=== PATIENT | male | born 1975 | race Caucasian/White ===

== ENCOUNTER 2020-01-22 16:41 | Emergency (ER) | payer OTHER, SELFPAY ==
--- NOTE | ~2020-01-22 | XR_ITS ---
EXAMINATION: XR ankle LT min 3V DATE: 01/22/2020 17:28 INDICATION: Soft tissue laceration and pain TECHNIQUE: Anteroposterior, lateral, mortise, and additional oblique view of the ankle were obtained. COMPARISON: None. FINDINGS: Soft tissue swelling and a soft tissue defect are seen near the medial malleolus. A faint l inear density is seen near the medial malleolus on the AP view. No additional acute osseous abnormali ty is suspected. Plantar calcaneal enthesophyte is noted. IMPRESSION: 1. Soft tissue defect and swelling near the medial malleolus, consistent with injury. 2. Faint linear density adjacent to the medial malleolus could reflect associated osseous injury. Reviewed, dictated and finalized at location A. IMPRESSION: 1. Soft tissue defect and swelling near the medial malleolus, consistent with i njury. 2. Faint linear density adjacent to the medial malleolus could reflect associat ed osseous injury.
[2020-01-22 16:43] VITALS: BP 125/88; PULSE 73; RESP 18; TEMP 36.9; O2SAT 96
[2020-01-22] MEDS: TETANUS,DIPHTHERIA,AC PERTUSSIS ADULT (0.5 ML) BOOSTRIX IM (17:21)
--- NOTE | 2020-01-22 17:38 | ED.LOWEXIN ---
HPI - Extremity Injury (Lower) General Chief Complaint: Extremity Injury, Lower <Rebekah Lloyd PA-C - Last Filed: 01/22/20 20:56> Stated Complaint: Chainsaw VS Foot <Rebekah Lloyd PA-C - Last Filed: 01/22/20 20:56> Time Seen by Provider: 01/22/20 17:04 <Rebekah Lloyd PA-C - Last Filed: 01/22/20 20:56> Source: patient <Rebekah Lloyd PA-C - Last Filed: 01/22/20 20:56> Mode of arrival: EMS <Rebekah Lloyd PA-C - Last Filed: 01/22/20 20:56> Limitations: no limitations <Rebekah Lloyd PA-C - Last Filed: 01/22/20 20:56> History of Present Illness HPI Narrative: This is a 44-year-old male that presents the emergency department after chainsaw injury today. Reports a laceration to the left ankle. Unsure of his last tetanus vaccine. Denies decreased range of motion or numbness. <Rebekah Lloyd PA-C - Last Filed: 01/22/20 20:56> Related Data Allergies/Adverse Reactions: Allergies Allergy/AdvReac Type Severity Reaction Status Date / Time No Known Allergies Allergy Verified 01/22/20 16:42 <Rebekah Lloyd PA-C - Last Filed: 01/22/20 20:56> Review of Systems Review of Systems: Narrative: CONSTITUTIONAL: Denies fever SKIN: Reports laceration MUSCULOSKELETAL: Denies joint pain, or myalgia. NEUROLOGIC: Denies numbness <Rebekah Lloyd PA-C - Last Filed: 01/22/20 20:56> All systems reviewed & are unremarkable except as noted in HPI and below <Rebekah Lloyd PA-C - Last Filed: 01/22/20 20:56> PMFSH Past Medical History Medical History: Medical History (Updated 01/22/20 @ 20:53 by Rebekah Lloyd PA-C) No active medical problems <Rebekah Lloyd PA-C - Last Filed: 01/22/20 20:56> Family History Family History: Family History (Updated 08/11/11 @ 13:56 by DOCTOR UNKNOWN) Other Cerebrovascular accident Diabetes mellitus Family history of cardiovascular disease Family history of malignant neoplasm <MAGUE Lozano Last Filed: 01/22/20 20:56> Social History Social History: Social History Smoking status: Smoker, status unknown Alcohol intake: current Gender identity (if verbalized by the patient): Male <MAGUE Lozano Last Filed: 01/22/20 20:56> Exam Narrative: Exam Narrative: GENERAL: Well-appearing, well-nourished, and in no acute distress. HEAD: Normocephalic, atraumatic. EYES: EOMI. EXTREMITIES: Normal range of motion. No edema or obvious deformity. Left ankle over the medial malleoli with 2 irregular lacerations into the subcutaneous tissue approximately 3 cm each SKIN: Warm, dry, no rash. NEURO: No focal deficits. Alert and oriented x3. PSYCH: Normal mood and affect <MAGUE Lozano Last Filed: 01/22/20 20:56> Course Consultations Consultation #1: Spoke with Dr. Kebede about patient and work-up who reports that likely that small osseous fragment is not anything significant <MAGUE Lozano Last Filed: 01/22/20 20:56> Date: 01/22/20 <MAGUE Lozano Last Filed: 01/22/20 20:56> Time: 20:51 <MAGUE Lozano Last Filed: 01/22/20 20:56> Vital Signs Vital signs: Vital Signs Temperature 98.5 F 01/22/20 16:43 Pulse Rate 73 01/22/20 16:43 Respiratory Rate 18 01/22/20 16:43 Blood Pressure 125/88 01/22/20 16:43 Pulse Oximetry 96 01/22/20 16:43 Temperature 98.5 F 01/22/20 16:43 Pulse Rate 73 01/22/20 16:43 Respiratory Rate 18 01/22/20 16:43 Blood Pressure 125/88 01/22/20 16:43 Pulse Oximetry 96 01/22/20 16:43 <MAGUE Lozano Last Filed: 01/22/20 20:56> Vital Signs Temperature 98.5 F 01/22/20 16:43 Pulse Rate 73 01/22/20 16:43 Respiratory Rate 18 01/22/20 16:43 Blood Pressure 125/88 01/22/20 16:43 Pulse Oximetry 96 01/22/20 16:43 Temperature 98.5 F 01/22/20 16:43 Pulse Rate 73 01/22/20 16:43 Respiratory Rate 18 01/22/20 16:43 Blood Pressure 125/8
[2020-01-22] MEDS: LIDO 1%/EPINEPHRINE 1:100,000 20 ML VIAL INFILTRATE (19:18)
[2020-01-22] MEDS: WATER, STERILE FOR INJECTION 10 ML VIAL XX (20:36)
[2020-01-22] MEDS: ceFAZolin SODIUM 1 GM VIAL IM (20:36)
[2020-01-22 21:19] VITALS: BP 113/73; PULSE 73; RESP 18; O2SAT 99
== END 2020-01-22 21:21 | disposition home or self-care (01) ==
PROVIDERS: Emergency Provider General Practice
DX: S91.012A Laceration without foreign body, left ankle, initial encounter (principal); W29.3XXA Contact with powered garden and outdoor hand tools and machinery, initial encounter; Z23 Encounter for immunization
CPT/HCPCS: 12002; 73610; 90471; 90715; 96372; 99283; A9270; J0690

== ENCOUNTER 2025-03-25 21:42 | Emergency (ER) | payer OTHER, SELFPAY ==
--- OUTSIDE RECORDS SUMMARY | 2025-03-25 21:45 | XMS_ITS | Encounter Summary ---
Author Organization [facility] Address [address] [place] [address] Care Team Providers Care Meat Curer Name Role Phone Ignacio Cameron MD Primary Care Provider [phone] Reason for Visit * Reason Comments Information Encounter Details Date Type Department Care Team (Late st Contact Info) Description 10/11/2024 Telephone [facility] [address] [place] [address] [place] [address] [place] [address] Information Social History Tobacco Use Types Packs/Day Years Used Date Smoking Tobacco: Light Smoker Cigars Smokeless Tobacco: Never Alcohol Use Standard Drinks/Week Comments Yes 0 (1 standard drink = 0.6 oz pur e alcohol) occasional Sex and Gender Information Value Date Recorded Sex Assigned at Not on file Legal Sex Male 4:11 PM CDT Gender Identity Not on file Sexual Orientation Not on file documented as of this encounter Miscellaneous Notes * Telephone Encounter - Marquita Candelario - 10/11/2024 3:00 PM CST Left messages with appt and informed them to call if that appointment does not work. LOGY COORDINATOR * Telephone Encounter - Nataliia Cox - 10/11/2024 10:30 AM CST Copied from [facility] #[id number]. Topic: Patient or Caregiver Communication Request >> Oct 11, 2024 10:28 AM Nataliia B wrote: Patient or Caregiver requesting advice Caller: Mony () Patient/Caregiver Callback Number: [phone] Call Notes: Mony is calling because she is a patient of Dr Cameron and the patient wants to be a patient of his as well. No appointments are populating for Dr. Cameron. Please advise. LOGY COORDINATOR documented in this encounter Plan of Treatment Upcoming Encounters Date Type Department Care Team (Late st Contact Info) Description 01/01/2026 1:00 PM CDT Office Visit [facility] [address] [place] [address] [place] [address] [place] [address] documented as of this encounter Visit Diagnoses Not on filedocumented in this encounter Care Teams Meat Curer Relationship Specialty [place] [address] [place] [address] PCP - General Family Practice 12/26/24 documented as of this encounter
--- OUTSIDE RECORDS SUMMARY | 2025-03-25 21:45 | XMS_ITS | Encounter Summary ---
Author Organization [facility] Address [address] [place] [address] Care Team Providers Care Skills Trainer Name Role Phone Unavailable Primary Care Provider Unavailabl e Encounter Details Date Type Department Care Team (Late st Contact Info) Description 06/24/2023 Lab Requisition [facility] - DermPath Lab [address] [place] [id number] Jessi Clayton PA-C [address] [place] [phone] Neoplasm of uncertain behavior of skin Social History Tobacco Use Types Packs/Day Years Used Date Smoking Tobacco: Never Assessed Sex and Gender Information Value Date Recorded Sex Assigned at Not on file Legal Sex Male 4:01 PM CDT Gender Identity Not on file Sexual Orientation Not on file documented as of this encounter Plan of Treatment Not on file documented as of this encounter Procedures Procedure Name Priority Date/Time Associated Diagnosis Comments DERMATOPATHOLOGY Routine 06/24/2023 12:0 0 AM CDT Neoplasm of uncertain behavior of skin documented in this encounter Results * DERMATOPATHOLOGY (06/24/2023 12:00 AM CDT) Case Report Dermatopathology Report Case: [id number] Authorizing Provider: Jessi Clayton PA-C Collected: 06/24/2023 12:00 AM Ordering Location: [facility] DermPath Lab Received: 06/25/2023 01:32 PM Pathologist: Anjelica Flowers MD Specimen: Skin, medial frontal scalp 4:32 PM CDT DERMATOPATHOLOGY LABORATORY Final Diagnosis Specimen A. SKIN, medial frontal scalp: SOLAR ELASTOSIS (L57.8) TELANGIECTASES (I78.1) (see microscopic description) 10/30/202 3 4:32 PM CDT DERMATOPATHOLOGY LABORATORY at 1632 CDT Clinical History Basal Carcinoma 3 4:32 PM CDT DERMATOPATHOLOGY LABORATORY Gross Description Specimen A: Received is one formalin filled container labeled with the patient's name and designated medial frontal scalp. The specimen consists of a shave biopsy measuring 8x6x1 mm. Jar 0. 3 4:32 PM CDT DERMATOPATHOLOGY LABORATORY Microscopic Description Specimen A. SKIN, medial frontal scalp: The epidermis is unremarkable. The dermis shows a proliferation of elastic fibers in the superficial dermis that are increased in thickness. Tumor is not seen. Within the dermis there are dilated thin-walled vessels lined by a single layer of endothelium. Additional deeper sections were obtained and reviewed. 3 4:32 PM CDT DERMATOPATHOLOGY LABORATORY Disclaimer An external and internal positive and negative controls are appropriate for the histochemical, immunohistochemical and immunofluorescence stain(s) in this case (if any), except where stated explicitly. The performance characteristics of the stain(s) cited in this report were developed and its performance characteristic determined by the Dermatopathology Laboratory at [facility], directed by Dr. Paul Salas. These tests need not be, and therefore are not, approved by the [place] Food and Drug Administration. The tests are used for clinical purposes. Billing Codes Specimen Charges Stain Charges 49317 1 3 4:32 PM CDT DERMATOPATHOLOGY LABORATORY Embedded Images 3 4:32 PM CDT DERMATOPATHOLOGY LABORATORY Pathology/Cytolog y TISSUE SPECIMEN FROM SKIN / Unknown 06/24/2023 06/25/2023 1:32 PM CDT Jessi Clayton PA-C LAB - PATHOLOGY/CYTOLOGY ANGELAE SARAH Final Result DERMATOPATHOLOGY LABORATORY [facility] - Department of Dermatology [address] [place] [address], [facility] [phone] documented in this encounter Visit Diagnoses Diagnosis Neoplasm of uncertain behavior of skin documented in this encounter
--- OUTSIDE RECORDS SUMMARY | 2025-03-25 21:45 | XMS_ITS | Clinical Summary ---
Author Organization [facility] Address [address] [place] [address] Care Team Providers Care Advertising Dispatch Clerks Supervisor Name Role Phone Unavailable Primary Care Provider Unavailabl e Source Comments [facility],non-owned Affiliates and Associated Physician Practices is amultiple site organization consisting of ambulatory clinics and hospital sitesin [place], [place], [place] and [place]. This disclosure is being madepursuant to the Care Everywhere program and may not contain all information available regarding this patient. Last updated 18.[facility] Social History Tobacco Use Types Packs/Day Years Used Date Smoking Tobacco: Never Assessed Sex and Gender Information Value Date Recorded Sex Assigned at Not on file Legal Sex Male 4:01 PM CDT Gender Identity Not on file Sexual Orientation Not on file Plan of Treatment Health Maintenance Due Date Last Done Comments COLOGUARD (AGES 45-75) - COL ON CA SCREENING 1975 COLON MONITORING 1975 COLONOSCOPY - COLON CA SCREENING 1975 CT COLONOGRAPHY - COLON CA SCREENING 1975 Colorectal Cancer Screening 1975 FIT - COLON CA SCREENING 1975 FLEX SIG - COLON CA SCREENING 1975 LIPID TESTING 1975 HIV SCREENING 1990 HEPATITIS C SCREENING 02/15/1993 DTAP/TDAP/TD VACCINES (1 - Tdap) 1994 HEPATITIS B VACCINE (1 of 3 - 19+ 3-dose series) 1994 COVID-19 VACCINE (1 - 2023-2 5 season) 2024 DEPRESSION SCREENING 08/30/2024 PNEUMOCOCCAL VACCINE 50+ (1 of 1 - PCV) 2025 ZOSTER VACCINE (1 of 2) 2025 INFLUENZA VACCINE (#1) 2025 HIB VACCINE Aged Out No longer eligi ble based on patient's age to complete this topic HPV VACCINE Aged Out No longer eligi ble based on patient's age to complete this topic MENINGOCOCCAL (Group B) VACC INE SHARED DECISION-MAKING Aged Out No longer eligibl e based on patient's age to complete this topic MENINGOCOCCAL GROUPS A/C/Y/W VACCINE Aged Out No longer eligible b ased on patient's age to complete this topic Insurance [employer]
--- OUTSIDE RECORDS SUMMARY | 2025-03-25 21:45 | XMS_ITS | Continuity of Care Document ---
Author Organization [facility] [place] Address [address] [place] [address] [address] [place] [address] Phone Care Team Providers Care Cap Parts Cutter Name Role Phone Jermain Zuniga Unavailable Unavailable Procedures Procedure Date Therapeutic Activities Neuromuscular Re-Ed Therapeutic Exercise Manual Therapy Therapeutic Activities Therapeutic Exercise Neuromuscular Re-Ed Manual Therapy Therapeutic Activities Manual Therapy Therapeutic Exercise Therapeutic Activities Neuromuscular Re-Ed Therapeutic Exercise Manual Therapy Therapeutic Activities Neuromuscular Re-Ed Therapeutic Exercise Manual Therapy Therapeutic Activities Neuromuscular Re-Ed Therapeutic Exercise Manual Therapy Therapeutic Activities Neuromuscular Re-Ed Manual Therapy Therapeutic Exercise Therapeutic Activities Therapeutic Exercise Neuromuscular Re-Ed Manual Therapy Therapeutic Activities Therapeutic Exercise Neuromuscular Re-Ed Manual Therapy Therapeutic Activities Neuromuscular Re-Ed Therapeutic Exercise Manual Therapy Therapeutic Activities Neuromuscular Re-Ed Therapeutic Exercise PT Evaluation Moderate Complexity Therapeutic Activities Neuromuscular Re-Ed THERAPEUTIC EXERCISES NEUROMUSCULAR RE-ED MANUAL THERAPY MECHANICAL TRACTION THERAPEUTIC EXERCISES NEUROMUSCULAR RE-ED MANUAL THERAPY PT RE-EVALUATION THERAPEUTIC EXERCISES NEUROMUSCULAR RE-ED MANUAL THERAPY MECHANICAL TRACTION THERAPEUTIC EXERCISES NEUROMUSCULAR RE-ED MANUAL THERAPY MECHANICAL TRACTION THERAPEUTIC EXERCISES NEUROMUSCULAR RE-ED MANUAL THERAPY THERAPEUTIC EXERCISES NEUROMUSCULAR RE-ED MANUAL THERAPY HOT/COLD PACK MECHANICAL TRACTION ELECTRIC STIMULATION UNA THERAPEUTIC EXERCISES NEUROMUSCULAR RE-ED MANUAL THERAPY HOT/COLD PACK ELECTRIC STIMULATION UNA THERAPEUTIC EXERCISES NEUROMUSCULAR RE-ED MANUAL THERAPY THERAPEUTIC EXERCISES NEUROMUSCULAR RE-ED MANUAL THERAPY HOT/COLD PACK ELECTRIC STIMULATION UNATT PT EVALUATION THERAPEUTIC EXERCISES MANUAL THERAPY THERAPEUTIC EXERCISES NEUROMUSCULAR RE-ED MANUAL THERAPY HOT/COLD PACK THERAPEUTIC EXERCISES NEUROMUSCULAR RE-ED MANUAL THERAPY HOT/COLD PACK THERAPEUTIC EXERCISES NEUROMUSCULAR RE-ED MANUAL THERAPY HOT/COLD PACK THERAPEUTIC EXERCISES NEUROMUSCULAR RE-ED MANUAL THERAPY HOT/COLD PACK THERAPEUTIC EXERCISES NEUROMUSCULAR RE-ED MANUAL THERAPY HOT/COLD PACK THERAPEUTIC EXERCISES NEUROMUSCULAR RE-ED MANUAL THERAPY HOT/COLD PACK THERAPEUTIC EXERCISES NEUROMUSCULAR RE-ED MANUAL THERAPY HOT/COLD PACK THERAPEUTIC EXERCISES NEUROMUSCULAR RE-ED MANUAL THERAPY HOT/COLD PACK THERAPEUTIC EXERCISES NEUROMUSCULAR RE-ED MANUAL THERAPY HOT/COLD PACK THERAPEUTIC EXERCISES NEUROMUSCULAR RE-ED MANUAL THERAPY HOT/COLD PACK THERAPEUTIC EXERCISES NEUROMUSCULAR RE-ED MANUAL THERAPY HOT/COLD PACK THERAPEUTIC EXERCISES NEUROMUSCULAR RE-ED MANUAL THERAPY HOT/COLD PACK THERAPEUTIC EXERCISES NEUROMUSCULAR RE-ED MANUAL THERAPY HOT/COLD PACK THERAPEUTIC EXERCISES NEUROMUSCULAR RE-ED MANUAL THERAPY HOT/COLD PACK THERAPEUTIC EXERCISES MANUAL THERAPY HOT/COLD PACK THERAPEUTIC EXERCISES MANUAL THERAPY HOT/COLD PACK THERAPEUTIC EXERCISES MANUAL THERAPY HOT/COLD PACK THERAPEUTIC EXERCISES MANUAL THERAPY HOT/COLD PACK THERAPEUTIC EXERCISES MANUAL THERAPY HOT/COLD PACK THERAPEUTIC EXERCISES MANUAL THERAPY HOT/COLD PACK THERAPEUTIC EXERCISES MANUAL THERAPY HOT/COLD PACK THERAPEUTIC EXERCISES MANUAL THERAPY HOT/COLD PACK THERAPEUTIC EXERCISES MANUAL THERAPY HOT/COLD PACK THERAPEUTIC EXERCISES MANUAL THERAPY HOT/COLD PACK THERAPEUTIC EXERCISES MANUAL THERAPY HOT/COLD PACK THERAPEUTIC EXERCISES MANUAL THERAPY HOT/COLD PACK THERAPEUTIC EXERCISES MANUAL THERAPY HOT/COLD PACK THERAPEUTIC EXERCISES MANUAL THERAPY HOT/COLD PACK THERAPEUTIC EXERCISES MANUAL THERAPY HOT/COLD PACK THERAPEUTIC EXERCISES NEUROMUSCULAR RE-ED MANUAL THERAPY HOT/COLD PACK ELECTRIC STIMULATION UNATT THERAPEUTIC EXERCISES NEUROMUSCULAR RE-ED MANUAL THERAPY HOT/COLD PACK ELECTRIC STIMULATION UNATT THERAPEUTIC EXERCISES NEUROMUSCULAR RE-ED MANUAL THERAPY HOT/COLD PACK ELECTRIC STIMULATION UNATT THERAPEUTIC EXERCISES MANUAL THERAPY HOT/COLD PACK ELECTRIC STIMULATION UNATT THERAPEUTIC EXERCISES MANUAL THERAPY HOT/COLD PACK THERAPEUTIC EXERCISES MANUAL THERAPY HOT/COLD PACK ELECTRIC STIMULATION UNATT THERAPEUTIC EXERCISES MANUAL THERAPY HOT/COLD PACK THERAPEUTIC EXERCISES MANUAL THERAPY HOT/COLD PACK ELECTRIC STIMULATION UNATT THERAPEUTIC EXERCISES MANUAL THERAPY HOT/COLD PACK ELECTRIC STIMULATION UNATT THERAPEUTIC EXERCISES MANUAL THERAPY HOT/COLD PACK ELECTRIC STIMULATION UNA OT RE-EVALUATION THERAPEUTIC EXERCISES MANUAL THERAPY HOT/COLD PACK ELECTRIC STIMULATION UNA THERAPEUTIC EXERCISES MANUAL THERAPY HOT/COLD PACK ELECTRIC STIMULATION UNA THERAPEUTIC EXERCISES MANUAL THERAPY HOT/COLD PACK ELECTRIC STIMULATION UNA THERAPEUTIC EXERCISES MANUAL THERAPY HOT/COLD PACK ELECTRIC STIMULATION UNA THERAPEUTIC EXERCISES MANUAL THERAPY HOT/COLD PACK ELECTRIC STIMULATION UNA THERAPEUTIC EXERCISES MANUAL THERAPY HOT/COLD PACK THERAPEUTIC EXERCISES MANUAL THERAPY HOT/COLD PACK ELECTRIC STIMULATION UNA THERAPEUTIC EXERCISES MANUAL THERAPY HOT/COLD PACK ELECTRIC STIMULATION UNA THERAPEUTIC EXERCISES MANUAL THERAPY HOT/COLD PACK THERAPEUTIC EXERCISES MANUAL THERAPY HOT/COLD PACK ELECTRIC STIMULATION UNA THERAPEUTIC EXERCISES MANUAL THERAPY HOT/COLD PACK ELECTRIC STIMULATION UNATT THERAPEUTIC EXERCISES MANUAL THERAPY HOT/COLD PACK ELECTRIC STIMULATION UNATT THERAPEUTIC EXERCISES MANUAL THERAPY HOT/COLD PACK ELECTRIC STIMULATION UNATT THERAPEUTIC EXERCISES MANUAL THERAPY HOT/COLD PACK ELECTRIC STIMULATION UNATT THERAPEUTIC EXERCISES MANUAL THERAPY HOT/COLD PACK ELECTRIC STIMULATION UNATT THERAPEUTIC EXERCISES MANUAL THERAPY HOT/COLD PACK THERAPEUTIC EXERCISES NEUROMUSCULAR RE-ED MANUAL THERAPY HOT/COLD PACK THERAPEUTIC EXERCISES NEUROMUSCULAR RE-ED MANUAL THERAPY HOT/COLD PACK THERAPEUTIC EXERCISES NEUROMUSCULAR RE-ED MANUAL THERAPY HOT/COLD PACK THERAPEUTIC EXERCISES MANUAL THERAPY ULTRASOUND THERAPY HOT/COLD PACK THERAPEUTIC EXERCISES MANUAL THERAPY HOT/COLD PACK THERAPEUTIC EXERCISES NEUROMUSCULAR RE-ED MANUAL THERAPY HOT/COLD PACK OT EVALUATION THERAPEUTIC EXERCISES Advance Directives Directive Yes / No Effective Date File Name No Information Encounters Encounter Description Practice Location Reason(s) For Visit Diagnoses Date Provider Providers Copied on Encounter [facility] [address], [id number], tel:[phone] [place] No Information 3 Abbi Aly. [address] [place] [address], . tel:[phone] Referring Provider: Deng Garces [address], [facility]. tel:[phone] [facility] [address] [place] [address], [id number], tel:[phone] [place] No Information 3 Abbi Aly. [address] [facility], [address], [facility], . tel:[phone] Referring Provider: Deng Garces [address], [address]. tel:[phone], [place], [place], [id number], tel:[phone] [place] No Information 3 Muehl Jermain. [address] [place] [address], [address], [place], [facility], . tel:[phone] Referring Provider: Derek Bear, [address], [place], [facility]. tel:[phone], [place], [place], [id number], tel:[phone] [place] No Information 3 Muehl Jermain. [address] [place] [address], [address], [facility], . tel:[phone] Referring Provider: Derek Bear, [address], [place], [facility]. tel:[phone], [place], [place], [id number], tel:[phone] [place] No Information 3 Muehl Jermain. [address] [place] [address], [address], [facility], . tel:[phone] Referring Provider: Derek Bear, [address], [place], [address]. tel:[phone], [place], [place], [address], tel:[phone] [place] No Information 3 Muehl Jermain. [address] [place] [address], [address], [facility], . tel:[phone] Referring Provider: Derek Bear, [address], [place], [facility]. tel:[phone], [place], [place], [id number], tel:[phone] [place] No Information 3 Muehl Jermain. [address] [place] [address], [address], [facility], . tel:[phone] Referring Provider: Derek Bear, [address], [place], [address]. tel:[phone] [address], [place], [place], [id number], tel:[phone] [place] No Information 2 3 Muehl Jermain. [address] [place] [address], [address], [place], [facility], . tel:[phone] Referring Provider: Derek Bear, [address], [place], [address]. tel:[phone], [place], [address], tel:[phone] [place] No Information 0 3 Muehl Jermain. [address] [place] [address], [address], [facility], . tel:[phone] Referring Provider: Derek Bear, [address], [place], [address]. tel:[phone] [address], [place], [address], tel:[phone] [place] No Information 3 Muehl Jermain. [address] [place] [address], [address], [facility], . tel:[phone] Referring Provider: Derek Bear, [address], [place], [address]. tel:[phone] [address], [place], [place], [address], tel:[phone] [place] No Information 3 Muehl Jermain. [address] [place] [address], [address], [facility], . tel:[phone] Referring Provider: Derek Bear, [address], [place], [address]. tel:[phone], [place], [address], tel:[phone] [place] No Information Jun-0 9-202 3 Muehl Jermain. [address] [place] [address], [facility] [address], [place], [facility], . tel:[phone] Referring Provider: Derek Bear, [address], [place], [address]. tel:[phone], [id number], tel:[phone] [place] No Information Jan-10 08- 5 Muehl Jermain. [address] [place] [address], [facility] [address], [place], [facility], . tel:[phone] Referring Provider: Obed Collado [address] [place] [address] [place] [address], [address]. tel:[phone], [id number], tel:[phone] [place] No Information Jan-2 5-201 5 Muehl Jermain. [address] [place] [address], [facility] [address], [place], [facility], . tel:[phone] Referring Provider: Obed Collado [facility] [address] [place] [address], [address]. tel:[phone], [id number], tel:[phone] [place] No Information - 5 Muehl Jermain. [address] [place] [address], [address], [facility], . tel:[phone] Referring Provider: Obed Collado [facility]1 [facility] [address] [place] [address], [address]. tel:[phone] [address], [place], [place], [address], tel:[phone] [place] No Information Slim-1 2-201 5 Muehl Jermain. [address] [place] [address], [facility] [address], [place], [facility], . tel:[phone] Referring Provider: Obed Collado [address] [place] [address], [place], [address]. tel:[phone] [address], [place], [place], [address], tel:[phone] [place] No Information Slim-0 9-201 5 Muehl Jermain. [address] [place] [address], [address], [facility], . tel:[phone] Referring Provider: Obed Collado [address] [place] [address], [place], [address]. tel:[phone] [address], [place], [place], [address], tel:[phone] [place] No Information Slim-0 3-201 5 Muehl Jermain. [address] [place] [address], [address], [address], [place]. tel:[phone] Referring Provider: Obed Collado [address] [place] [address], [address]. tel:[phone] [address], [place], [id number], [place] tel:[phone] [place] No Information Slim-0 1-201 5 Muehl Jermain. [address] [place] [address], [address], [facility], . tel:[phone] Referring Provider: Obed Collado [address] [place] [address], [place], [address]. tel:[phone] [address], [place], [place], [address], tel:[phone] [place] No Information May-2 8-201 5 Muehl Jermain. [address] [facility], [address], [place], [address], [place]. tel:[phone] Referring Provider: Obed Collado, [facility] [address], [place], [address]. tel:[phone], [place], [id number], [place] tel:[phone] [place] No Information 6-201 5 Muehl Jermain. [address] [facility], [address], [place], [address], [place]. tel:[phone] Referring Provider: Obed Collado [facility] [address], [place], [address]. tel:[phone], [place], [place], [address], [place] tel:[phone] [place] Cervicalgia 2 5 Muehl Jermain. [address] [place] [address], [address], [address], [place]. tel:[phone] Referring Provider: Obed Collado [facility]1 [facility] [address], [place], [address]. tel:[phone], [place], [address], [place] tel:[phone] [place] No Information 4 Toledobarb Sykes. [address] [place] [address], [address], [place], [address], [place]. tel:[phone] Referring Provider: Ky Kebede, [address] [facility] [address], [place], [address]. [facility] [address] [place] [address], [place], [id number], [place] tel:[phone] [place] No Information 3-201 4 Tre Sykes. [address] [place] [address], [address], [address], [place]. tel:[phone] Referring Provider: Ky Kebede [address], [place], [address]. [facility], [address], [place], [place], [address], tel:[phone] [place] No Information Aug-0 6-201 4 Toledo Mony. [address] [place] [address], [address], [place], [facility], . tel:[phone] Referring Provider: Ky Kebede, [address] [place] [address] [address], [place], [address]. [facility], [address], [place], [place], [address], tel:[phone] [place] No Information Aug-0 4-201 4 Toledo Mony. [address] [place] [address], [address], [place], [facility], . tel:[phone] Referring Provider: Ky Kebede, [address] [place] [address] [address], [place], [address]. [facility], [address] [facility], [place], [address], tel:[phone] [place] No Information Aug-0 1-201 4 Toledo Mony. [address] [place] [address], [address], [place], [facility], [place]. tel:[phone] Referring Provider: Ky Kebede, [address] [place] [address] [address], [place], [address]. [facility], [address], [place], [place], [address], tel:[phone] [place] No Information Feb-3 0-201 4 Toledo Mony. [address] [place] [address], [address], [place], [facility], [place]. tel:[phone] Referring Provider: Ky Kebede, [address] [place] [address] [address], [place], [address]. [facility], [address], [place], [place], [address], tel:[phone] [place] No Information Feb-2 1-201 4 Toledo Mony. [address] [place] [address], [address], [place], [address], [place]. tel:[phone] Referring Provider: Ky Kebede, [address] [place] [address] [address], [place], [address]. [facility], [address] [place] [address] [address], [place], [place], [address], tel:[phone] [place] No Information Feb-1 6-201 4 Toledo Mony. [address] [place] [address], [address], [place], [facility], [place]. tel:[phone] Referring Provider: Ky Kebede, [address] [place] [address] [address], [place], [address]. [address], [place], [place], [address], tel:[phone] [place] No Information 1-201 4 Toledo Mony. [address] [place] [address], [address], [place], [facility], [place]. tel:[phone] Referring Provider: Ky Kebede, [address] [place] [address] [address], [place], [address]. [facility], [facility] [address], [place], [place], [address], [place] tel:[phone] [place] No Information 0 7-201 4 Toledo Mony. [address] [place] [address], [address], [place], [address], [place]. tel:[phone] Referring Provider: Ky Kebede, [address] [place] [address] [address], [place], [address]. [facility], [address] [place] [address] [address], [place], [place], [address], [place] tel:[phone] [place] No Information 0 2-201 4 Toledo Mony. [address] [place] [address], [address], [place], [address], [place]. tel:[phone] Referring Provider: Ky Kebede, [address] [place] [address] [address], [place], [address]. [facility], [address], [place], [place], [address], tel:[phone] [place] No Information Slim-1 6-201 4 Toledo Mony. [address] [place] [address], [address], [place], [facility], . tel:[phone] Referring Provider: Ky Kebede, [facility] [address], [place], [address]. [address], [place], [place], [address], tel:[phone] [place] No Information Slim-1 2-201 4 Toledo Mony. [address] [place] [address], [address], [place], [facility], . tel:[phone] Referring Provider: Ky Kebede, [facility] [address], [place], [address]. [facility] [address] [place], [place] [address], [place], [address], tel:[phone] [place] No Information Slim-1 1-201 4 Toledo Mony. [address] [place] [address], [address], [place], [facility], [place]. tel:[phone] Referring Provider: Ky Kebede, [facility] [address], [place], [address]. [facility], [address] [place], [place] [address], [place], [place], [address], tel:[phone] [place] No Information May-3 0-201 4 Toledo Mony. [address] [place] [address], [address], [place], [facility], [place]. tel:[phone] Referring Provider: Ky Kebede, [address], [place], [address]. [address], [place], [place], [address], tel:[phone] [place] No Information May-1 4-201 4 Toledo Mony. [address] [place] [address], [address], [place], [facility], [place]. tel:[phone] Referring Provider: Ky Kebede, [address] [place] [address] [address], [place], [address]. [facility] [address] [place], [place] [address], [place], [place], [address], tel:[phone] [place] No Information May-1 2-201 4 Toledo Mony. [address] [place] [address], [address], [place], [facility], . tel:[phone] Referring Provider: Ky Kebede, [address] [place] [address] [address], [place], [address]. [facility], [address] [place], [place] [address], [place], [place], [address], tel:[phone] [place] No Information May-0 7-201 4 Toledo Mony. [address] [place] [address], [address], [place], [facility], . tel:[phone] Referring Provider: Ky Kebede, [address] [place] [address] 162 [address], [place], [address]. [address], [place], [address], tel:[phone] [place] No Information May-0 5-201 4 Toledo Mony. [address] [place] [address], [address], [place], [facility], . tel:[phone] Referring Provider: Ky Kebede, [address] [place] [address] 162 [address], [place], [address]. [address], [place], [place], [address], tel:[phone] [place] No Information May-0 2-201 4 Toledo Mony. [address] [place] [address], [address], [place], [facility], . tel:[phone] Referring Provider: Ky Kebede, [address] [place] [address] [address], [place], [address]. [facility] [address] [place], [place] [address], [place], [place], [address], tel:[phone] [place] No Information Apr-2 8-201 4 Toledo Mony. [address] [place] [address], [address], [place], [address], [place]. tel:[phone] Referring Provider: Ky Kebede, [address], [place], [address]. [facility], [facility] [address], [place], [place], [address], tel:[phone] [place] No Information Apr-2 3-201 4 Toledo Mony. [address] [place] [address], [address], [place], [address], [place]. tel:[phone] Referring Provider: Ky Kebede, [facility] [address], [place], [address]. [facility], [address], [place], [place], [address], tel:[phone] [place] No Information Apr-0 9-201 4 Toledo Mony. [address] [place] [address], [address], [place], [address], [place]. tel:[phone] Referring Provider: Ky Kebede, [facility] [address], [place], [address]. [facility] [address], [place], [place], [address], [place] tel:[phone] [place] No Information Apr-0 7-201 4 Tol[place] Mony. [address] [place] [address], [address], [place], [address], [place]. tel:[phone] Referring Provider: Ky Kebede, [facility] [address], [place], [address]. [facility] [address], [place], [place], [id number], [place] tel:[phone] [place] No Information Apr-0 4-201 4 Toledo Mony. [address] [place] [address], [address], [place], [address], [place]. tel:[phone] Referring Provider: Ky Kebede, [address], [place], [address]. [facility] [address] [place], [place] [address], [place], [place], [id number], tel:[phone] [place] No Information Mar-3 1-201 4 Toledo Mony. [address] [place] [address], [address], [place], [facility], . tel:[phone] Referring Provider: Ky Kebede, [address], [place], [address]. [facility], [address], [place], [place], [id number], tel:[phone] [place] No Information Mar-1 9-201 4 Toledo Mony. [address] [place] [address], [address], [place], [facility], . tel:[phone] Referring Provider: Ky Kebede, [address], [place], [address]. [facility], [address] [facility] [address], [place], [place], [id number], tel:[phone] [place] No Information Mar-1 4-201 4 Toledo Omny. [address] [place] [address], [address], [place], [facility], [place]. tel:[phone] Referring Provider: Ky Kebede, [address], [place], [address]. [facility], [address], [place], [place], [id number], tel:[phone] [place] Pain in joint involving forearm Mar-1 2-201 4 Toledo Mony. [address] [place] [address], [address], [place], [facility], [place]. tel:[phone] Referring Provider: Ky Kebede, [address], [place], [address]. [facility], [address], [place], [place], [id number], tel:[phone] [place] No Information Dec-3 0-201 3 Toledo Mony. [address] [place] [address], [address], [place], [address], [place]. tel:[phone] Referring Provider: Ky Kebede, [address] [place] [address] [address], [place], [address]. [address], [place], [place], [address], tel:[phone] [place] No Information Dec-2 0-201 3 Toledo Mony. [address] [place] [address], [address], [place], [facility], [place]. tel:[phone] Referring Provider: Ky Kebede, [address] [place] [address] [address], [place], [address]. [address], [place], [place], [address], tel:[phone] [place] No Information Dec-1 8-201 3 Toledo Mony. [address] [place] [address], [address], [place], [facility], . tel:[phone] Referring Provider: Ky Kebede, [address] [place] [address] 162 [address], [place], [address]. [facility], [facility] [address], [place], [place], [id number], tel:[phone] [place] No Information Dec-1 6-201 3 Toledo Mony. [address] [place] [address], [address], [place], [facility], [place]. tel:[phone] Referring Provider: Ky Kebede, [address] [place] [address] [address], [place], [address]. [facility] [address], [place], [place], [address], [place] tel:[phone] [place] No Information Dec-1 3-201 3 Toledo Mony. [address] [place] [address], [address], [place], [facility], [place]. tel:[phone] Referring Provider: Ky Kebede, [address], [place], [address]. [facility] [address], [place], [place], [address], tel:[phone] [place] No Information Dec-1 1-201 3 Toledo Mony. [address] [place] [address], [address], [place], [address], [place]. tel:[phone] Referring Provider: Ky Kebede, [address] [place] [address] [address], [place], [address]. [facility] [address], [place], [address], tel:[phone] [place] No Information Dec-0 9-201 3 Toledo Mony. [address] [place] [address], [address], [place], [address], [place]. tel:[phone] Referring Provider: Ky Kebede, [address] [place] [address] [address], [place], [address]. [facility], [address] [place], [place] [address], [place], [place], [address], tel:[phone] [place] No Information Dec-0 4-201 3 Tol[place] Mony. [address] [place] [address], [address], [place], [facility], [place]. tel:[phone] Referring Provider: Ky Kebede, [address] [place] [address] 162 [address], [place], [address]. [facility], [facility] [address], [place], [place], [address], tel:[phone] [place] No Information Dec-0 2-201 3 Tol[place] Mony. [address] [place] [address], [address], [place], [address], [place]. tel:[phone] Referring Provider: Ky Kebede, [facility] [address], [place], [address]. [facility] [address], [place], [place], [address], [place] tel:[phone] [place] No Information Nov-2 9-201 3 Tol[place] Mony. [address] [place] [address], [address], [place], [address], [place]. tel:[phone] Referring Provider: Ky Kebede, [address], [place], [address]. [facility], [address], [place], [address], [place] tel:[phone] [place] No Information Nov-2 7-201 3 Tol[place] Mony. [address] [place] [address], [address], [place], [facility], . tel:[phone] Referring Provider: Ky Kebede, [address], [place], [address]. [facility], [address], [place], [place], [id number], [place] tel:[phone] [place] No Information Nov-2 5-201 3 [place] Mony. [address] [place] [address], [address], [place], [facility], [place]. tel:[phone] Referring Provider: Ky Kebede, [address] [place] [address] 162 [address], [place], [address]. [facility], [address], [place], [place], [address], [place] tel:[phone] [place] No Information Nov-2 2-201 3 [place] Mony. [address] [place] [address], [address], [place], [address], [place]. tel:[phone] Referring Provider: Ky Kebede, [address] [place] [address] [address], [place], [address]. [facility], [address], [place], [id number], [place] tel:[phone] [place] No Information Nov-1 8-201 3 [place] Mony. [address] [place] [address], [address], [place], [address], [place]. tel:[phone] Referring Provider: Ky Kebede, [address] [place] [address] [address], [place], [address]. [facility], [address], [place], [place], [address], [place] tel:[phone] [place] No Information Nov-1 5-201 3 [place] Mony. [address] [place] [address], [address], [place], [facility], [place]. tel:[phone] Referring Provider: Ky Kebede, [address] [place] [address] 162 [address], [place], [address]. [facility], [address] [place] [address] [address], [place], [place], [address], tel:[phone] [place] No Information Nov-1 3-201 3 [place] Mony. [address] [place] [address], [address], [place], [facility], [place]. tel:[phone] Referring Provider: Ky Kebede, [address] [place] [address] 162 [address], [place], [address]. [address], [place], [place], [address], tel:[phone] [place] No Information Nov-1 1-201 3 [place] Mony. [address] [place] [address], [address], [place], [facility], [place]. tel:[phone] Referring Provider: Ky Kebede, [address] [place] [address] 162 [address], [place], [address]. [address], [place], [address], tel:[phone] [place] No Information Nov-0 6-201 3 [place] Mony. [address] [place] [address], [address], [place], [address], [place]. tel:[phone] Referring Provider: Ky Kebede, [address] [place] [address] 162 [address], [place], [address]. [address], [place], [place], [address], [place] tel:[phone] [place] No Information Nov-0 4-201 3 [place] Mony. [address] [place] [address], [address], [place], [facility], [place]. tel:[phone] Referring Provider: Ky Kebede, [address] [place] [address] 162 [address], [place], [address]. [address], [place], [place], [address], tel:[phone] [place] No Information Nov-0 1-201 3 [place] Mony. [address] [place] [address], [address], [place], [facility], . tel:[phone] Referring Provider: Ky Kebede, [address], [place], [address]. [address], [place], [address], tel:[phone] [place] No Information Oct-3 0-201 3 [place] Mony. [address] [place] [address], [address], [place], [facility], . tel:[phone] Referring Provider: Ky Kebede, [address], [place], [address]. [address], [place], [place], [address], tel:[phone] [place] No Information Oct-2 8-201 3 [place] Mony. [address] [place] [address], [address], [place], [facility], [place]. tel:[phone] Referring Provider: Ky Kebede, [address] [place] [address] 162 [address], [place], [address]. [address], [place], [place], [address], tel:[phone] [place] No Information Oct-2 3-201 3 [place] Mony. [address] [place] [address], [address], [place], [facility], [place]. tel:[phone] Referring Provider: Ky Kebede, [address], [place], [address]. [address], [place], [address], tel:[phone] [place] No Information Oct-1 4-201 3 [place] Mony. [address] [place] [address], [address], [place], [facility], [place]. tel:[phone] Referring Provider: Ky Kebede, [address] [place] [address] 162 [address], [place], [address]. [facility], [address], [place], [place], [address], tel:[phone] [place] No Information Oct-1 1-201 3 Toledobarb Sykes. [address] [place] [address], [address], [place], [facility], [place]. tel:[phone] Referring Provider: Ky Kebede, [address] [place] [address] [address], [place], [address]. [facility], [address] [place], [place] [address], [place], [place], [address], tel:[phone] [place] No Information Oct-0 9-201 3 [place] Mony. [address] [place] [address], [address], [place], [facility], [place]. tel:[phone] Referring Provider: Ky Kebede, [address] [place] [address] 162 [address], [place], [address]. [facility], [address] [place], [place] [address], [place], [place], [address], tel:[phone] [place] No Information Oct-0 7-201 3 Lizzette Yen. [address] [place] [address], [address], [place], [facility], [place]. tel:[phone] Referring Provider: Ky Kebede, [address] [place] [address] 162 [address], [place], [address]. [facility], [address], [place], [place], [address], tel:[phone] [place] No Information Oct-0 4-201 3 Lizzette Yen. [address] [place] [address], [address], [place], [facility], [place]. tel:[phone] Referring Provider: Ky Kebede, [address] [place] [address] [address], [place], [address]. [facility], [address], [place], [address], tel:[phone] [place] No Information Oct-0 1- 3 Clyde Indra. [address] [facility], [address], [place], [address], [place]. tel:[phone] Referring Provider: Ky Kebede, [address] [place] [address] [address], [place], [address]. [facility], [address] [place], [place] [address], [place], [place], [address], tel:[phone] [place] No Information Apr- 3 Clyde Indra. [address] [place] [address], [address], [place], [address], [place]. tel:[phone] Referring Provider: Ky Kebede, [address] [place] [address] 162 [address], [place], [address]. [facility], [address], [place], [place], [address], tel:[phone] [place] No Information Apr- 3 Lizzette Yen. [address] [place] [address], [address], [place], [facility], [place]. tel:[phone] Referring Provider: Ky Kebede, [address] [place] [address] [address], [place], [address]. [facility], [address], [place], [place], [address], tel:[phone] [place] No Information Apr- 6 3 Hadeb العراقيfer. [address] [place] [address], [address], [place], [address], [place]. tel:[phone] Referring Provider: Ky Kebede, [address] [place] [address] 162 [address], [place], [address]. [facility], [address], [place], [place], [address], [place] tel:[phone] [place] Pain in joint involving upper arm Sep-1 3-201 3 Hauschild Yovana. [address] [place] [address], [address], [place], [address], [place]. tel:[phone] Referring Provider: Ky Kebede, [address] [place] [address] [address], [place], [address]. Family History Family Member Type Diagnosis Age At Onset No Information Payers Payer name Insurance type Covered democrat ID Henry Inman (s) [id number] Social History Type Description Quantity Date Captured Comments Sex Male Smoking Status No Information Chief Complaint And Reason For Visit No Information Reason For Referral Reason For Referral No Information Plan Of Treatment Date Type Action Status Referral Ordered: Clinical Psychology (related to Depression) ordered Referral Ordered: Referrals: Specialist. Evaluate and Treat (related to Adjustment disorder with depressed mood) ordered Referral Ordered: Depression: Depression management program timeframe: 1 Day. (related to Depression) ordered History Of Present Illness Encounter Date Complaint History Of Prese nt Illness No Information Functional Status Date Functional Assessmen t No Information Instructions Date Instruction Additional Infor mation Prescribed activity/exercise edu cation Related to Overweight Dietary needs education Related to Overweight Assessments Type Assessment Date No Information Patient Care Teams Name Effective Dates (start - stop) Status Members No Information
--- OUTSIDE RECORDS SUMMARY | 2025-03-25 21:45 | XMS_ITS | Referral Summary ---
Author Organization [facility] Address [address] [place] [id number] Care Team Providers Care Crib Attendant Name Role Phone Jigar Mata MD Primary Care Provider [phone] Encounters Date Type Department Care Team Description 02/13/2025 5:30 PM CDT Office Visit [facility] at [address] [id number] Sherron Ferrer PA Soft tissue mass (Primary Dx) from Last 3 Months Allergies Active Allergy Reactions Criticality Noted Date Comments Banana Sweating Low 06/19/2024 Grass Pollen House Dust Mold Nut Flavor Anaphylaxis High 04/02/2020 Gilberts Sweating Low 06/19/2024 Tomato Diarrhea Low 04/02/2020 Medications No known medications Active Problems Problem Noted Date Diagnosed Date Chronic pain of both hips 09/24/2020 Vasectomy evaluation 10/06/2019 Neuropathy 03/26/2015 Pain of upper extremity 01/09/2015 Chronic pain 01/05/2015 Herniation of cervical 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 01/05/2015 Osteoarthritis of cervical spine without myelopa thy 01/05/2015 Cervical radiculopathy 01/05/2015 Muscle pain 12/26/2014 Paresis 12/26/2014 Numbness 12/26/2014 Tingling of skin 12/26/2014 Cervicalgia 05/31/2014 Social History Tobacco Use Types Packs/Day Years Used Date Smoking Tobacco: Never Smokeless Tobacco: Never Tobacco Cessation:Counseling Given: Not Answered Sex and Gender Information Value Date Recorded Sex Assigned at Not on file 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 Gender Identity Not on file Sexual Orientation Not on file Last Filed Vital Signs Vital Sign Reading Time Taken Comments Blood Pressure 118/82 02/13/2025 5:33 PM CDT Pulse 69 02/13/2025 5:33 PM CDT Temperature 36.2 C (97.2 F) 02/13/2025 5:33 PM CDT Respiratory Rate 16 02/13/2025 5:33 PM CDT Oxygen Saturation 99% 02/13/2025 5:33 PM CDT Inhaled Oxygen Concentration - - Weight 83 kg (183 lb) 02/13/2025 5:33 PM CDT Height 174.6 cm (5' 8.75) 06/19/2024 10:05 AM C DT Body Mass Index 27.22 06/19/2024 10:05 AM CDT Plan of Treatment Not on file [facility] H[facility] Care Teams Crib Attendant Relationship Specialty Start Date End Date Jigar Mata MD [address] [place] [address] PCP - General 07/23/20
--- OUTSIDE RECORDS SUMMARY | 2025-03-25 21:45 | XMS_ITS | Clinical Summary ---
Author Organization [employer] [place] Address [address] [place] [address] Care Team Providers Care Can Filling And Closing Machine Tender Name Role Phone Ignacio Cameron MD Primary Care Provider [phone] Allergies Active Allergy Reactions Criticality Noted Date Comments Banana Other (See Comments) Low 06/19/2024 Grass Pollen Other (See Comments) 04/02/2020 House Dust Other (See Comments) 04/02/2020 Mold Other (See Comments) 04/02/2020 Nut Flavor Anaphylaxis High 04/02/2020 [place] Other (See Comments) Low 06/19/2024 Tomato Diarrhea Low 04/02/2020 Medications ibuprofen (MOTRIN) 200 mg Capsule Take by mouth. Active GaviLyte-C 240-22.72-6.72 -5.84 gram solution 5 03/12/20 25 Discontinued Active Problems Problem Noted Date Diagnosed Date Chronic pain of left knee 12/26/2024 Osteoarthritis, hip, bilateral 12/26/2024 Resolved Problems Problem Noted Date Diagnosed Date Resolved Date Vasectomy evaluation 10/06/2019 025 DJD (degenerative joint dise ase) of cervical spine 03/26/2015 12/26/2024 Overview (03/26/2015): Follows with ortho with [facility]. Has received steroid shots. Neuropathy 03/26/2015 12/26/2024 Encounters Date Type Department Care Team Description 03/12/2025 9:48 AM CDT Anesthesia Event [facility] [place] [address] [place] [address] Patric Shay MD 03/12/2025 9:40 AM CDT - 03/12/2025 10:20 AM CDT Surgery [facility] S [facility] Jose G [address] [place] [address] Kvng Adames MD COLONOSCOPY 03/12/2025 8:57 AM CDT - 03/12/2025 10:49 AM CDT Hospital En[facility] Jose G [address] [facility] [place] [address] Kvng Adames MD Encounter for colorectal cancer screening Discharge Disposition: Home or Self Care 02/22/2025 8:30 AM CDT Office Visit [facility] [address] [place] [address] Shriaz Penaloza PA Lump of skin of left upper extremity (Primary Dx) 2025 Telephone [facility] [address] [place] [address] Ignacio Cameron MD Clinical Consult Before Scheduling 01/30/2025 External Device Data [place] ABSTRACTION Provider, Abstract 01/18/2025 External Device Data [place] ABSTRACTION Provider, Abstract 01/18/2025 External Device Data [place] ABSTRACTION Provider, Abstract 01/17/2025 External Device Data [place] ABSTRACTION Provider, Abstract 12/26/2024 1:00 PM CDT Office Visit [facility] [address] [place] [address] Ignacio Cameron MD Annual physical exam (Primary Dx); Encounter for colorectal cancer screening; Declined influenza vaccine; Chronic pain of left knee; Primary osteoarthritis of both hips from Last 3 Months Immunizations Immunization Administration Dates Next Due (ADACEL/BOOSTRIX)(10 YR UP) TDAP VACCINE, 0.5ML, IM 02/21/2016 Family History Medical History Relation Name Comments Crohn's Disease Brother Diabetes Father Cancer Maternal Grandfather Diabetes Maternal Grandmother Healthy Mother Hypertension Mother Heart Disease Paternal Grandfather Diabetes Paternal Grandmother Colon Cancer Neg Hx Relation Name Status Comments Brother Father Alive Maternal Grandfather Maternal Grandmother Mother Alive Paternal Grandfather Paternal Grandmother Social History Tobacco Use Types Packs/Day Years [...] Sign Reading Time Taken Comments Blood Pressure 123/72 03/12/2025 10:32 AM CDT Pulse 62 03/12/2025 10:32 AM CDT Temperature 36.1 C (97 F) 03/12/2025 10:12 AM CDT Respiratory Rate 16 03/12/2025 10:32 AM CDT Oxygen Saturation 100% 03/12/2025 10:32 AM CDT Inhaled Oxygen Concentration - - Weight 80 kg (176 lb 6.4 oz) 03/12/2025 9:23 AM CDT Height 175.3 cm (5' 9) 03/12/2025 9:23 AM CDT Body Mass Index 26.05 03/12/2025 9:23 AM CDT Plan of Treatment Upcoming Encounters Date Type Department Care Team (Late st Contact Info) Description 01/01/2026 1:00 PM CDT Office Visit [facility] Primary [facility] [address] [place] [address] [place] [address] [place] [address] Health Maintenance Due Date Last Done Comments HEPATITIS B VACCINES (1 of 3 - 19+ 3-dose series) 1994 FIT-DNA Q 3 years 02/21/2020 FIT/FOBT Q 1 year 02/21/2020 Flex Sig/CT Colonography Q 5 years 02/21/2020 Pre-Diabetes and Diabetes Screening 06/29/2022 06/29/2019 ZOSTER VACCINE (1 of 2) 2025 INFLUENZA VACCINE (#1) 2025 12/26/2024 DTAP/TDAP/TD VACCINES (2 - T d or Tdap) 2026 02/21/2016 COLORECTAL SCREENING 03/12/2035 03/12/2025, 07/14/20 25 Colorectal Cancer Screening 03/12/2035 Preventative Visit- Commercial Completed 0 12/26/2024, 06/29/2019, 05/18/2017, Additional history exists Procedures Procedure Name Priority Date/Time Associated Diagnosis Comments COLONOSCOPY REPORT 03/12/2025 10 :13 AM CDT MD COLONOSCOPY FLX DX W/COLLJ SPEC WHEN PFRMD 03/12/2025 9:40 AM CDT Encounter for colorectal cancer screening HEMOGLOBIN A1C Routine 06/29/2019 4:07 PM CDT Encounter for routine adult health examination without abnormal findings from Last 3 Months or Most Recently Relevant to Health Maintenance Results * COLONOSCOPY REPORT (03/12/2025 10:13 AM CDT) Narrative Procedure Note Kvng Adames MD - 03/12/2025 10:13 AM CDT [facility] Endoscopy Patient Name: Ced [place] Procedure Date: 03/12/2025 Date of : 1975 Attending MD: Kvng Adames MD, Procedure: Colonoscopy Indications: Screening for colorectal malignant neoplasm Providers: Kvng Adames MD Referring MD: Ignacio Cameron Medicines: TIVA Complications: No immediate complications. Procedure: Informed consent was obtained for the procedure, including moderate sedation after risks were discussed. Based on the pre-procedure assessment, including review of the patient's medical history, medications, allergies, and review of systems, the patient was deemed to be an appropriate candidate for sedation. A timeout was performed. Continuous ECG monitoring, pulse oximetry, blood pressure monitoring, and direct observation were performed. The Colonoscope was introduced through the anus and advanced to the terminal ileum. The colonoscopy was performed without difficulty. The patient tolerated the procedure well. The quality of the bowel preparation was excellent. Estimated Blood Loss: Estimated blood loss: none. Findings: The anus, rectum, ileum and colon (entire examined portion) appeared normal. Impression: - Normal ileocolonoscopy. - No specimens collected. Recommendation: - Average risks colon and rectal cancer screening. Current guidelines call for a repeat study in 10 years. Sooner colonoscopy may be proper for symptoms or a family history of polyps or cancer. Kvng Adames MD 03/12/2025 10:13:23 AM This report has been signed electronically. Number of Addenda: [address]; [place] [address] [place] Kvng Adames MD GI PROCEDURE ORDERABLES Adelia l Result * HEMOGLOBIN A1C (06/29/2019 4:07 PM CDT) HEMOGLOBIN A1C 5.3 <5.7 % 06/29/2019 8:25 PM CDT [facility] EST. AVG GLUCOSE, A1C 105 mg/dL 06/29/2019 8:25 PM CDT [facility] [employer] [facility] Blood Venipuncture / Unknown 06/29/2019 4:07 PM CDT 06/29/2019 4:07 PM CDT Narrative [facility] - 06/29/2019 8:25 PM CDT HGB A1C INTERPRETATION NORMAL: <5.7% PRE-DIABETES: 5.7 - 6.4% DIABETES: 6.5% OR GREATER us Abdiaziz Gavin SHAKE SAWYER CHEMISTRY ORDERABLES Final Result [facility] [employer] [facility] CLIA# [id number] [address] [place] [address] from Last 3 Months or Most Recently Relevant to Health Maintenance [place] [phone] Advance Directives For more information, please contact: [phone] * Full Code (Latest Code Status on File) Date Activated Date Inactivated Comments 03/12/2025 9:26 AM 03/12/2025 12:49 PM Care Teams Can Filling And Closing Machine Tender Relationship Specialty [place] [address] [place] [address] PCP - General Family Practice 12/26/24
--- OUTSIDE RECORDS SUMMARY | 2025-03-25 21:45 | XMS_ITS | Clinical Summary ---
Author Organization [facility] Address [address] [place] [address] Care Team Providers Care Entertainment Musician Name Role Phone Jigar Mata MD Primary Care Provider [phone] Allergies Active Allergy Reactions Criticality Noted Date Comments Banana Sweating Low 06/19/2024 Grass Pollen House Dust Mold Nut Flavor Anaphylaxis High 04/02/2020 [place] Sweating Low 06/19/2024 Tomato Diarrhea Low 04/02/2020 [...] 12/26/2014 Tingling of skin 12/26/2014 Cervicalgia 05/31/2014 Encounters Date Type Department Care Team Description 02/13/2025 5:30 PM CDT Office Visit [facility] Care at [address] [address] Sherron Ferrer PA Soft tissue mass (Primary Dx) from Last 3 Months Surgical History Surgery Date Site/Laterality Comments KNEE ARTHROSCOPY Medical History Medical History Date Comments Obesity Social History Tobacco Use Types Packs/Day Years Used Date Smoking Tobacco: Never Smokeless Tobacco: Never Tobacco Cessation:Counseling Given: Not Answered Sex and Gender Information Value Date Recorded Sex Assigned at Not on file 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 Gender Identity Not on file Sexual Orientation Not on file Obstetrics History Last Filed Vital Signs Vital Sign Reading [...] 06/19/2024 10:05 AM CDT Plan of Treatment Health Maintenance Due Date Last Done Comments Colon Cancer Screening-Colonoscopy 1975 Depression Screening 1975 Hepatitis C Screening 1975 Prostate Cancer Screening-PSA 1975 DTaP/Tdap/Td Vaccine (1 - Tdap) 1986 Hepatitis B Screening 1993 Regular Well Visit/Exam 18-64 1993 Covid-19 Vaccine (4 - 2023-2 5 season) 2024 07/16/2021, 11/28/2020, 11/07/2020 Zoster Vaccine (1 of 2) 2025 Influenza Vaccine (#1) 2025 Pneumococcal vaccine <65 Aged Out No longer eligible based on patient's age to complete this topic Insurance AETNA [facility] HMO [facility] HMO Care Teams Entertainment Musician Relationship Specialty Start Date End Date Jigar Mata MD [address] [place] [address] PCP - General 07/23/20
[2025-03-25 21:48] VITALS: BP 139/89; PULSE 67; RESP 16; TEMP 36.7; O2SAT 99
--- OUTSIDE RECORDS SUMMARY | 2025-03-25 23:12 | XMS_ITS | Clinical Summary ---
Author Organization [employer] [place] Address [address] [place] [address] Care Team Providers Care Test And Balance Engineer Name Role Phone Ignacio Cameron MD Primary Care Provider [phone] Allergies Active Allergy Reactions Criticality Noted Date Comments Banana Other (See Comments) Low 06/19/2024 Grass Pollen Other (See Comments) 04/02/2020 House Dust Other (See Comments) 04/02/2020 Mold Other (See Comments) 04/02/2020 Nut Flavor Anaphylaxis High 04/02/2020 [place] Other (See Comments) Low 06/19/2024 Tomato Diarrhea [...] Description 03/12/2025 9:48 AM CDT Anesthesia Event [facility] [place] [address] [place] [address] Patric Shay MD 03/12/2025 9:40 AM CDT - 03/12/2025 10:20 AM CDT Surgery [facility] GI [facility] Jose G [address] [place] [address] Kvng Adames MD COLONOSCOPY 03/12/2025 8:57 AM CDT - 03/12/2025 10:49 AM CDT Hospital Encounter [facility] Jose G [address] [place] [address] Kvng Adames MD Encounter for colorectal cancer screening Discharge Disposition: Home or Self Care 02/22/2025 8:30 AM CDT Office Visit [facility] Primary Care [address] [place] [address] Shiraz Penaloza PA Lump of skin of left upper extremity (Primary Dx) 2025 Telephone [facility] Primary Care [address] [place] [address] Ignacio Cameron MD Clinical Consult Before Scheduling 01/30/2025 External Device Data STL ABSTRACTION Provider, Abstract 01/18/2025 External Device Data STL ABSTRACTION Provider, Abstract 01/18/2025 External Device Data STL ABSTRACTION Provider, Abstract 01/17/2025 External Device Data STL ABSTRACTION Provider, Abstract 12/26/2024 1:00 PM CDT Office Visit [facility] Primary Care [address] [place] [address] Ignacio Cameron MD Annual physical exam (Primary [...] Description 01/01/2026 1:00 PM CDT Office Visit [facility] Primary Care [address] [place] [address] [place] [address] [place] [address] Health Maintenance Due Date Last [...] COLONOSCOPY REPORT 03/12/2025 10 :13 AM CDT [place] COLONOSCOPY FLX DX W/COLLJ SPEC WHEN PFRMD 03/12/2025 9:40 AM CDT Encounter for colorectal cancer screening HEMOGLOBIN A1C Routine 06/29/2019 4:07 PM CDT Encounter for routine adult health examination without abnormal findings from Last 3 Months or Most Recently Relevant to Health Maintenance Results * COLONOSCOPY REPORT (03/12/2025 10:13 AM CDT) Narrative Procedure Note Kvng Adames MD - 03/12/2025 10:13 AM CDT [facility] Endoscopy Patient Name: Ced [place] Procedure Date: [...] of Addenda: [address]; [place] [address] us Kvng Adames MD GI PROCEDURE ORDERABLES Adelia l Result * HEMOGLOBIN A1C (06/29/2019 4:07 PM CDT) HEMOGLOBIN A1C 5.3 <5.7 % 06/29/2019 8:[address] [facility] EST. AVG GLUCOSE, A1C 105 mg/dL 06/29/2019 8:[address] [facility] [employer] [facility] Blood Venipuncture / Unknown 06/29/2019 4:07 PM CDT 06/29/2019 4:07 PM CDT Narrative [facility] - 06/29/2019 8:25 PM CDT HGB A1C INTERPRETATION NORMAL: <5.7% PRE-DIABETES: 5.7 - 6.4% DIABETES: 6.5% OR GREATER us Abdiaziz Gavin DIRECTOR TELEVISION CHEMISTRY ORDERABLES Final Result [facility] [employer] [facility] CLIA# [id number] [address] [place] [address] from Last 3 Months or Most Recently Relevant to Health Maintenance [place] [phone] Advance Directives For more information, please contact: [phone] * Full Code (Latest Code Status on File) Date Activated Date Inactivated Comments 03/12/2025 9:26 AM 03/12/2025 12:49 PM Care Teams Test And Balance Engineer Relationship Specialty [place] [address] [place] [address] PCP - General Family Practice 12/26/24
--- OUTSIDE RECORDS SUMMARY | 2025-03-25 23:12 | XMS_ITS | Referral Summary ---
Author Organization [facility] Address [address] [place] [address] Care Team Providers Care Delicatessen Department Manager Name Role Phone Jigar Mata MD Primary Care Provider [phone] Encounters Date Type Department Care Team Description 02/13/2025 5:30 PM CDT Office Visit [facility] Convenient Care at [address] [address] Sherron Ferrer PA Soft tissue mass (Primary Dx) from Last 3 Months Allergies Active Allergy Reactions Criticality Noted Date Comments Banana Sweating Low 06/19/2024 Grass Pollen House Dust Mold Nut Flavor Anaphylaxis High 04/02/2020 [place] Sweating Low 06/19/2024 Tomato Diarrhea Low 04/02/2020 [...] on file 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
--- OUTSIDE RECORDS SUMMARY | 2025-03-25 23:12 | XMS_ITS | Clinical Summary ---
Author Organization [facility] Address [address] [place] [address] Care Team Providers Care Bridge Builder Name Role Phone Jigar Mata MD Primary Care Provider [phone] Allergies Active Allergy Reactions Criticality Noted Date Comments Banana Sweating Low 06/19/2024 Grass Pollen House Dust Mold Nut Flavor Anaphylaxis High 04/02/2020 [place] Sweating Low 06/19/2024 Tomato Diarrhea Low 04/02/2020 [...] Description 02/13/2025 5:30 PM CDT Office Visit [facility] Medical Group [facility] Care at [address] [address] Sherron Ferrer PA Soft tissue [...] on file 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 HMO [facility] HMO Care Teams Bridge Builder Relationship Specialty Start Date End Date Jigar Mata MD [address] [place] [address] PCP - General 07/23/20
--- OUTSIDE RECORDS SUMMARY | 2025-03-25 23:13 | XMS_ITS | Encounter Summary ---
Author Organization [facility] Address [address] [place] [address] Care Team Providers Care Climatology Professor Name Role Phone Ignacio Cameron MD Primary Care Provider [phone] Reason for Visit * Reason Comments Information Encounter Details Date Type Department Care Team (Late st Contact Info) Description 10/11/2024 Telephone [facility] Primary Care [address] [place] [address] [place] [address] [place] [address] Information Social History Tobacco Use [...] call if that appointment does not work. ESTATE TRANSACTION MANAGER * Telephone Encounter - Nataliia Cox - 10/11/2024 10:30 AM CST Copied from [facility] #[id number]. Topic: Patient or Caregiver Communication Request >> Oct 11, 2024 10:28 AM Nataliia B wrote: Patient or Caregiver requesting advice Caller: Mony () Patient/Caregiver Callback Number: [phone] Call Notes: Mony is calling because she is a patient of Dr Cameron and the patient wants to be a patient of his as well. No appointments are populating for Dr. Cameron. Please advise. ESTATE TRANSACTION MANAGER documented in this encounter Plan of Treatment Upcoming Encounters Date Type Department Care Team (Late st Contact Info) Description 01/01/2026 1:00 PM CDT Office Visit [facility] Primary Care [address] [place] [address] [place] [address] [place] [address] documented as of this encounter Visit Diagnoses Not on filedocumented in this encounter Care Teams Climatology Professor Relationship Specialty [place] [address] [place] [address] PCP - General Family Practice 12/26/24 documented as of this encounter
--- OUTSIDE RECORDS SUMMARY | 2025-03-25 23:13 | XMS_ITS | Clinical Summary ---
Author Organization [facility] [employer] Address [address] [place] [address] Care Team Providers Care Senior Radiation Protection Technician Name Role Phone Unavailable Primary Care Provider Unavailabl e Source Comments [facility] [employer],non-owned Affiliates and Associated Physician Practices is amultiple site organization consisting of ambulatory clinics and hospital sitesin [place], [place], [place] and [place]. This disclosure is being madepursuant to the Care Everywhere program and may not contain all information available regarding this patient. Last updated 18.[facility] [employer] Social History Tobacco Use Types Packs/Day Years [...]
--- OUTSIDE RECORDS SUMMARY | 2025-03-25 23:13 | XMS_ITS | Encounter Summary ---
Author Organization [facility] Address [address] [place] [address] Care Team Providers Care Chart Computer Name Role Phone Unavailable Primary Care Provider Unavailabl e Encounter Details Date Type Department Care Team (Late st Contact Info) Description 06/24/2023 Lab Requisition [facility] - DermPath Lab [address] [facility] [place] [address] Jessi Clayton PA-C [address] [place] [address] Neoplasm of uncertain behavior of skin [...] AM CDT) Case Report Dermatopathology Report Case: [id number] Authorizing Provider: Jessi Clayton PA-C Collected: 06/24/2023 12:00 AM Ordering Location: [facility] DermPath Lab Received: 06/25/2023 01:32 PM [...] characteristic determined by the Dermatopathology Laboratory at [facility], directed by Dr. Paul [place]. These tests need not be, and therefore are not, approved by the [place] Food and Drug Administration. The tests are used for clinical purposes. Billing Codes Specimen Charges Stain Charges 52785 1 3 4:32 PM CDT DERMATOPATHOLOGY LABORATORY Embedded Images 3 4:32 PM CDT DERMATOPATHOLOGY LABORATORY Pathology/Cytolog y TISSUE SPECIMEN FROM SKIN / Unknown 06/24/2023 06/25/2023 1:32 PM CDT Jessi Clayton PA-C LAB - PATHOLOGY/CYTOLOGY ANGELAE SARAH Final Result DERMATOPATHOLOGY LABORATORY [facility] - Department of Dermatology [address] [place] [address], [facility] [phone] documented in this encounter Visit Diagnoses Diagnosis Neoplasm of uncertain behavior of skin documented in this encounter
[2025-03-25] MEDS: TETANUS,DIPHTHERIA,AC PERTUSSIS ADULT (0.5 ML) BOOSTRIX IM (23:31)
[2025-03-25] MEDS: LIDOCAINE 1% LOCAL INJ 10 ML VIAL INFILTRATE (23:32)
--- NOTE | 2025-03-25 23:35 | ED_ITS ---
HPI - Extremity Injury (Lower) General Chief Complaint: Extremity Injury, Lower Stated Complaint: laceration Time Seen by Provider: 03/25/25 22:53 Source: patient Mode of arrival: ambulatory Limitations: no limitations History of Present Illness HPI Narrative: This is a 50 year old male that presents to the ER for left great toe laceration. Sustained just prior to arrival. Reports bleeding and pain to the area. Denies decreased ROM or numbness. Related Data Home Medications ?Medication ?Instructions ?Recorded ?Confirmed ?Last Taken ?Type No Home Medications 03/25/25 03/25/25 Unknown History Allergies Allergy/AdvReac Type Severity Reaction Status Date / Time No Known Allergies Allergy Verified 03/25/25 21:49 Review of Systems Review of Systems: All systems reviewed & are unremarkable except as noted in HPI and below PMFSH Past Medical History Medical History (Updated 03/26/25 @ 00:23 by Rebekah Lloyd PA-C) No active medical problems Family History Family History (Updated 08/11/11 @ 13:56 by DOCTOR UNKNOWN) Other Cerebrovascular accident Diabetes mellitus Family history of cardiovascular disease Family history of malignant neoplasm Social History Social History Smoking status: Smoker, status unknown Alcohol intake: current Gender identity (if verbalized by the patient): Male Exam Narrative: GENERAL: Well-appearing, well-nourished, and in no acute distress. HEAD: Normocephalic, atraumatic. EYES: EOMI. EXTREMITIES: Normal range of motion. No edema. At the base of the left great toe plantar surface there is a 2cm linear laceration into subcutaneous tissue SKIN: Warm, dry, no rash. NEURO: No focal deficits. Alert and oriented x3. PSYCH: Normal mood and affect Course Course Emergency Course: Patient educated on further wound care Vital Signs Vital signs: Vital Signs Temperature 98.1 F 03/25/25 21:48 Pulse Rate 67 03/25/25 21:48 Respiratory Rate 16 03/25/25 21:48 Blood Pressure 139/89 03/25/25 21:48 Pulse Oximetry 99 03/25/25 21:48 Oxygen Delivery Room Air 03/25/25 21:48 Temperature 98.1 F 03/25/25 21:48 Pulse Rate 67 03/25/25 21:48 Respiratory Rate 16 03/25/25 21:48 Blood Pressure 139/89 03/25/25 21:48 Pulse Oximetry 99 03/25/25 21:48 Oxygen Delivery Room Air 03/25/25 21:48 Procedures Laceration Laceration 1: Date: 03/26/25 Time: 00:24 Site: lower extremity Side (If applicable): left Size (cm): 2 Description: linear Depth: simple, single layer Local Anesthetic: lidocaine 1% Amount of anesthesia used (mL): 2 Pre-repair: wound explored and irrigated ====== Skin Level ====== Skin layer closed with: vicryl Size (cm): 4-0 Number of sutures: 4 Technique: simple, interrupted ====== Subcutaneous Layer ====== ====== Muscle Layer ====== ====== Tendon Layer ====== MDM - Extremity Injury (Lower) MDM Narrative Medical decision making narrative: Patient presents the emergency department for laceration on the plantar surface of the left great toe. Patient was updated on tetanus vaccination. Wound was irrigated and closed with sutures. Patient is to follow up with primary provider. He was given warnings to return to the ER Differential Diagnosis Differential diagnosis: Likely other (Laceration, abrasion) Critical Care Time Critical Care Time Critical Care Time: No Discharge Plan Discharge Clinical Impression: Laceration Patient Disposition: Home Condition: Stable Instructions: Laceration (ED) Additional Instructions: Return to the emergency department if you experience fever, redness or swelling of your wound, abnormal drainage from your wound, or any other symptoms that are concerning to you. Apply antibiotic ointment daily. Do not soak the wound. Clean with mild soap and water daily Follow-up with your primary care doctor for suture removal in 10-14 days. Patient Language: Mongolian Prescriptions: No Action No Home Medications Follow-up/Referrals: Ignacio Cameron [Other]
== END 2025-03-26 00:47 | disposition home or self-care (01) ==
PROVIDERS: Emergency Provider Physician Assistant
DX: S91.112A Laceration without foreign body of left great toe without damage to nail, initial encounter (principal); Z23 Encounter for immunization; W22.03XA Walked into furniture, initial encounter
CPT/HCPCS: 12001; 90471; 90715; 99282; J2003